=== PATIENT | male | born 1985 | race Caucasian/White ===

== ENCOUNTER 2019-02-12 06:19 | Day surgery (SDC) | payer OTHER ==
[2019-02-12] VITALS (14 sets, daily range): BP systolic 106–143; BP diastolic 52–79; PULSE 18–68; RESP 13–18; Ht 175.3 cm; Wt 92.0 kg
[~2019-02-12] VITALS: Ht 175.3 cm; Wt 92.0 kg
[2019-02-12] MEDS ORDERED: LIDOCAINE 1% (MDV) 20 ML INJ ONE (07:33)
[2019-02-12] MEDS ORDERED: IODIXANOL LOCM 100 ML BTL ONE (07:33)
[2019-02-12] MEDS ORDERED: MIDAZOLAM 1 MG/ML 2 ML INJ ONE (07:34)
[2019-02-12] MEDS ORDERED: NITROGLYCERIN (IC) 100 MCG/ML INJ ONE (07:34)
[2019-02-12] MEDS ORDERED: FENTAnyl 50 MCG/ML VIAL ONE (07:34)
[2019-02-12] MEDS ORDERED: VERAPAMIL 5 MG INJ ONE (07:34)
[2019-02-12] MEDS ORDERED: SOD CHLORIDE 0.9% 1,000 ML IV SCH (08:40)
--- NOTE | 2019-02-12 08:44 | OPR ---
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 Anesthesia Type: MAC Estimated Blood Loss: minimal Transfusion none Specimen None Grafts/Implants none Complications none Pt Condition Post Procedure: stable Procedure Description Findings Hemodynamics LV pressure 94/1 with EDP of 5 Aortic pressure 92/65 Coronary findings Left main is a medium caliber vessel with no significant disease LAD is a medium caliber vessel with no significant disease Circumflex is a medium caliber vessel with no significant disease RCA is a medium caliber vessel and dominant with no significant disease Description of procedure of procedure Patient brought to the Filter Operator after informed consent. Patient prepped and draped as per protocol. Right radial artery access was obtained and a 5/6 [place] sheath was placed. A 5 [place] Young Harris catheter was used to enter the left ventricle and pressure measurements were obtained as well as pullback. We next engage the left main and RCA and angiogram was performed. All catheters and wires removed. There was no immediate complications. Recommendations Medical management Findings discussed with family Go Lamb DO February 12, 2019 08:44
--- NOTE | 2019-02-12 08:45 | PDOCDIS ---
Discharge Instructions CONDITION [id number] Patient Condition: [id number] Good HOME CARE INSTRUCTIONS: [id number] Diet Instructions: [id number] Low Fat /Cholesterol ACTIVITY: [id number] Activity Restrictions: [id number] Avoid heavy lifting (Not more than 5 pounds with right arm for 3 days) [address] (For 1 day) Go Lamb DO February 12, 2019 08:45
[2019-02-12] MEDS ORDERED: AL HYDROX/MG HYDROX/SIMETH 30 ML CUP PO PRN (09:00)
[2019-02-12] MEDS ORDERED: ACETAMINOPHEN 325 MG TAB PO PRN (09:00)
[2019-02-12] MEDS ORDERED: ONDANSETRON 4 MG INJ IV PRN (09:00)
--- NOTE | 2019-02-12 19:09 | RADRPT ---
Vent Rate: 62 bpm RR Interval: 968 msec [place] Interval: 140 msec QRS Duration: 97 msec QT Interval: 409 msec QTC Interval: 416 msec P-R-T [place]: 48 - 64 - 5 degrees Sinus rhythm...normal P axis, V-rate 50- 99 Electronically Signed By: Go Lamb
== END 2019-02-12 13:35 | disposition home or self-care (01) ==
LOC: SDS 06:19 → CCL 06:19
PROVIDERS: ATTEND Internal Medicine Cardiovascular Disease
DX: R07.9 Chest pain, unspecified (principal); R94.39 Abnormal result of other cardiovascular function study
CPT/HCPCS: 80048; 85025; 85610; 85730; 93005; 93458; C1887; J1644; J2250; J3010; Q9967; Z7610